=== PATIENT | female | born 1960 | race Caucasian/White ===

== ENCOUNTER 2017-11-05 11:55 | Emergency (ER) | payer OTHER, BC ==
[~2017-11-05] VITALS: Ht 161.3 cm; Wt 72.5 kg
[2017-11-05 13:10] LABS: BASOPHIL (%) 0.2 % (0-1); BASOPHIL COUNT 0.1 K/uL (0-0.1); EOSINOPHIL (%) 0.5 % (0-5); EOSINOPHIL COUNT 0.1 K/uL (0-0.3); HEMATOCRIT 39.1 % (36.0-46.0); HEMOGLOBIN 13.4 G/DL (11.9-15.5); IMMATURE GRANULOCYTE (%) 1.2 % (0.0-0.7); LYMPHOCYTE (%) 6.3 % (15-42); LYMPHOCYTE COUNT 1.3 K/uL (1.0-2.8); MCH 28.6 PG (29.0-34.0); MCHC 34.3 G/DL (30.0-36.0); MCV 83.4 FL (83-99); MONOCYTE (%) 5.9 % (3-12); MONOCYTE COUNT 1.3 K/uL (0-0.8); NEUTROPHIL (%) 85.9 % (45-76); NEUTROPHIL COUNT 18.2 K/uL (1.8-6.4); PLATELET COUNT 254 K/uL (156-360); RBC DIS.WIDTH-CV 13.1 % (11.8-14.6); RBC DIS.WIDTH-SD 39.4 % (39-53); RED BLOOD COUNT 4.69 M/uL (3.80-5.20); WHITE BLOOD COUNT 21.2 K/uL (4.1-10.2)
[2017-11-05 13:16] LABS: CHLORIDE 105 mEq/L (99-109); POTASSIUM 3.4 mEq/L (3.7-5.4); SODIUM 141 mEq/L (136-147)
[2017-11-05 13:18] LABS: GLUCOSE 161 mg/dL (70-99)
[2017-11-05 13:22] LABS: CREATININE 0.9 mg/dL (0.6-1.3); GFR ESTIMATE (CALCULATED) > 59 mL/min/
[2017-11-05 13:23] LABS: UREA NITROGEN (BUN) 15 mg/dL (9-23)
[2017-11-05 15:48] LABS: APPEARANCE CLEAR ((CLEAR)); BILIRUBIN NEGATIVE; BLOOD MODERATE; COLOR YELLOW ((YELLOW)); GLUCOSE (STRIP) NEGATIVE; KETONES 5; LEUKOCYTES NEGATIVE; NITRITE NEGATIVE; PROTEIN (STRIP) 100; UROBILINOGEN 0.2 MG/DL (0.2-1.0)
[2017-11-05 15:49] LABS: SPECIFIC GRAVITY > 1.060 (1.000-1.030)
[2017-11-05 15:51] LABS: BACTERIA RARE /HPF; EPITHELIAL CELLS NONE SEEN /HPF; MUCUS NONE SEEN /LPF; RED BLOOD CELLS 30-40 /HPF (0-5); WHITE BLOOD CELLS 0-5 /HPF (0-5)
[2017-11-05 15:57] LABS: HEMATOCRIT 35.7 % (36.0-46.0); HEMOGLOBIN 12.4 G/DL (11.9-15.5); MCH 29.1 PG (29.0-34.0); MCHC 34.7 G/DL (30.0-36.0); MCV 83.8 FL (83-99); PLATELET COUNT 195 K/uL (156-360); RBC DIS.WIDTH-SD 39.5 % (39-53); RED BLOOD COUNT 4.26 M/uL (3.80-5.20)
[2017-11-05 16:44] VITALS: BP 125/78
== END 2017-11-05 17:06 | disposition short-term general hospital (02) ==
LOC: EME 11:55 → TRA 11:55
PROVIDERS: Emergency Medicine
DX: S32.592A Other specified fracture of left pubis, initial encounter for closed fracture (principal); S32.401A Unspecified fracture of right acetabulum, initial encounter for closed fracture; S52.121A Displaced fracture of head of right radius, initial encounter for closed fracture; S82.851A Displaced trimalleolar fracture of right lower leg, initial encounter for closed fracture; V49.9XXA Car occupant (driver) (passenger) injured in unspecified traffic accident, initial encounter; Y92.410 Unspecified street and highway as the place of occurrence of the external cause; R07.81 Pleurodynia; M54.5 Low back pain
CPT/HCPCS: 70450; 71260; 72125; 72129; 72132; 73080; 73502; 73610; 74177; 80048; 81003; 85025; 85027; 86850; 86900; 86901; 93005; 99281; 99285; J2405; J3010; J7030